=== PATIENT | male | born 1980 | race Caucasian/White ===

== ENCOUNTER 2018-08-23 06:46 | Emergency (ER) | payer BC ==
--- NOTE | 2018-08-23 07:36 | EDM.PDOC ---
ED HPI GENERAL MEDICAL PROBLEM - General Chief Complaint: ENT Problem Stated Complaint: JAW PAIN Time Seen by Provider: 08/23/18 07:14 Source of Information: Reports: Patient History Limitations: Reports: No Limitations - History of Present Illness INITIAL COMMENTS - FREE TEXT/NARRATIVE: The patient presents with left jaw pain. This started a few days ago. The pain radiates to his neck and left ear. Opening his mouth makes the pain worse. He does have bad tooth in the left lower jaw. Onset: Gradual Duration: Day(s): Location: Reports: Face (Left jaw) Quality: Reports: Sharp Severity: Moderate Improves with: Reports: None Worsens with: Reports: None Associated Symptoms: Reports: No Other Symptoms - Related Data Allergies Allergy/AdvReac Type Severity Reaction Status Date / Time No Known Allergies Allergy Verified 08/23/18 07:20 Home Meds: Home Meds Hydrocodone/Acetaminophen [Hydrocodon-Acetaminophen 5-325] 1 - 2 each PO Q6HR PRN #20 tablet 08/23/18 [Rx] LORazepam 1 mg PO BEDTIME 08/23/18 [History] Penicillin V Potassium 500 mg PO Q6HR #40 tab 08/23/18 [Rx] Past Medical History HEENT History: Reports: Impaired Vision Psychiatric History: Reports: Addiction, Anxiety, Bipolar, Depression, Suicidal Ideation Social & Family History - Tobacco Use Smoking Status *Q: Current Every Day Smoker Years of Tobacco use: 20 Packs/Tins Daily: 2 - Caffeine Use Caffeine Use: Reports: Coffee - Recreational Drug Use Recreational Drug Use: No ED ROS ENT - Review of Systems Review Of Systems: See Below Constitutional: Reports: No Symptoms HEENT: Reports: Other (Left lower jaw pain) Respiratory: Reports: No Symptoms Cardiovascular: Reports: No Symptoms Endocrine: Reports: No Symptoms GI/Abdominal: Reports: No Symptoms : Reports: No Symptoms ED EXAM, ENT - Physical Exam Exam: See Below Exam Limited By: No Limitations General Appearance: Alert, No Apparent Distress Ears: Normal External Exam, Normal Canal Nose: Normal Inspection Mouth/Throat: Other (Pain upon palpation to the left lower jaw with some erythema and mild edema) Head: Atraumatic, Normocephalic Neck: Normal Inspection, Supple, Non-Tender Course - Vital Signs Last Recorded V/S: Last Vital Signs Temp 98.2 F 08/23/18 07:15 Pulse 106 H 08/23/18 07:15 Resp 16 08/23/18 07:15 BP 157/102 H 08/23/18 07:15 Pulse Ox 97 08/23/18 07:15 Departure - Departure Time of Disposition: 07:35 Disposition: Home, Self-Care 01 Condition: Good Clinical Impression: Dental abscess, Pain, dental - Discharge Information *PRESCRIPTION DRUG MONITORING PROGRAM REVIEWED*: No *COPY OF PRESCRIPTION DRUG MONITORING REPORT IN PATIENT CARLO: No Prescriptions: Hydrocodone/Acetaminophen [Hydrocodon-Acetaminophen 5-325] 1 - 2 each PO Q6HR PRN #20 tablet PRN Reason: Pain Penicillin V Potassium 500 mg PO Q6HR #40 tab Referrals: Jamil Barrett, PAWilfredo [Primary Care Provider] - Additional Instructions: Take the penicillin 4 times per day for 10 days. Take the hydrocodone as needed for pain. Follow up with your dentist in about a week. Please return if you are worse.
== END 2018-08-23 07:52 | disposition home or self-care (01) ==
LOC: JD.ED 06:46
DX: K04.7 Periapical abscess without sinus (principal); F17.210 Nicotine dependence, cigarettes, uncomplicated
CPT/HCPCS: 99283

== ENCOUNTER 2018-08-26 20:55 | Emergency (ER) | payer BC ==
--- NOTE | 2018-08-26 21:52 | EDM.PDOC ---
ED HPI GENERAL MEDICAL PROBLEM - General Chief Complaint: ENT Problem Stated Complaint: TOOTH PAIN Time Seen by Provider: 08/26/18 20:59 Source of Information: Reports: Patient, RN Notes Reviewed History Limitations: Reports: No Limitations - History of Present Illness INITIAL COMMENTS - FREE TEXT/NARRATIVE: Patient is a 38 year old male who presents to the ED for the evaluation of dental pain. He had been previously evaluated by Dr. Johnson on 08/23/18 for dental pain and was given a script for penicillin and norco tablets. The patient stated that he went to the walk in clinic today where they gave him a shot of toradol and this provided good pain relief. He went home and took a nap and awoke with worsened pain. He did try some orajel and this did not provided much relief. He did also take 2 norco tablets directly before coming to ED and at the time of initial evaluation, he states that his pain has been relieved. He notes that the pain was at a 10/10 initially. The walk-in clinic also changed his antibiotics to cephalexin. He is aware that he will need to follow up with a dentist. lower left posterior jaw Pain Score (Numeric/FACES): 10 - Related Data Allergies Allergy/AdvReac Type Severity Reaction Status Date / Time No Known Allergies Allergy Verified 08/26/18 21:49 Home Meds: Home Meds Hydrocodone/Acetaminophen [Hydrocodon-Acetaminophen 5-325] 1 - 2 each PO Q6HR PRN #20 tablet 08/23/18 [Rx] LORazepam 1 mg PO BEDTIME 08/23/18 [History] Clindamycin HCl 450 mg PO TID 08/26/18 [History] Past Medical History HEENT History: Reports: Impaired Vision Other Respiratory History: smoker Psychiatric History: Reports: Addiction, Anxiety, Bipolar, Depression, Suicidal Ideation Social & Family History - Tobacco Use Smoking Status *Q: Current Every Day Smoker Years of Tobacco use: 10 Packs/Tins Daily: 1.5 - Caffeine Use Caffeine Use: Reports: Coffee - Recreational Drug Use Recreational Drug Use: No ED ROS ENT - Review of Systems Review Of Systems: See Below Constitutional: Denies: Fever, Chills HEENT: Reports: Dental Pain. Denies: Throat Pain, Throat Swelling Respiratory: Reports: No Symptoms Cardiovascular: Reports: No Symptoms Endocrine: Reports: No Symptoms GI/Abdominal: Reports: No Symptoms : Reports: No Symptoms Musculoskeletal: Reports: No Symptoms Skin: Reports: No Symptoms Neurological: Reports: No Symptoms Psychiatric: Reports: No Symptoms Hematologic/Lymphatic: Reports: No Symptoms Immunologic: Reports: No Symptoms ED EXAM, ENT - Physical Exam Exam: See Below Exam Limited By: No Limitations General Appearance: Alert, WD/WN, No Apparent Distress Eye Exam: Bilateral Eye: EOMI, Normal Inspection, PERRL Ears: Normal External Exam Nose: Normal Inspection Mouth/Throat: Normal Inspection, Normal Lips, Normal Oropharynx, Dental Pain ( dentition in fair repair, multiple fillings noted. Pt is having pain to Left, lower posterior jaw.), Dental Tenderness. No: Dental Trauma Head: Atraumatic, Normocephalic Neck: Normal Inspection, Supple, Non-Tender Respiratory/Chest: No Respiratory Distress, Lungs Clear, Normal Breath Sounds, No Accessory Muscle Use, Chest Non-Tender Cardiovascular: Normal Peripheral Pulses, Regular Rate, Rhythm, No Murmur Neurological: Alert, Oriented, Normal Cognition, No Motor/Sensory Deficits Psychiatric: Normal Affect, Normal Mood Skin: Warm, Dry, Intact, Normal Color, No Rash Course - Vital Signs Last Recorded V/S: Last Vital Signs Temp 98.2 F 08/26/18 21:01 Pulse 103 H 08/26/18 21:01 Resp 18 08/26/18 21:01 BP 139/93 H 08/26/18 21:01 Pulse Ox 96 08/26/18 21:01 - Re-Assessments/Exams Free Text/Narrative Re-Assessment/Exam: 08/26/18 22:00 Pt presents to the ED for the evaluation of dental pain. Upon initial evaluation , his pain has subsided due to him taking the norco before ED visit. Pt was educated that naproxen can provide good relief to dental pain and was advised to take his antibiotics as prescribed, and to reserve the norco for times that the pain is not relieved by the naproxen alone. He was urged again that he will need seek dental care after antibiotics, the patient is aware of this. Departure - Departure Time of Disposition: 21:49 Disposition: Home, Self-Care 01 Condition: Fair Clinical Impression: Pain, dental - Discharge Information *PRESCRIPTION DRUG MONITORING PROGRAM REVIEWED*: No *COPY OF PRESCRIPTION DRUG MONITORING REPORT IN PATIENT CARLO: No Referrals: Arnold,Shad W, PA-C [Primary Care Provider] - Forms: ED Department Discharge Additional Instructions: You have been evaluated in the ED for your dental pain. Please take the [place] tablets previously prescribed only if pain is not relieved by regular NSAIDs (aleve (naproxen)) Recommend Aleve (naproxen) 2 tabs twice daily for pain relief. Please take the antibiotics prescribed until they are gone. Please follow up with dentist for definitive management of affected tooth. Please return to ED if your symptoms change or worsen.
== END 2018-08-26 21:57 | disposition home or self-care (01) ==
LOC: JD.ED 20:55
DX: K08.89 Other specified disorders of teeth and supporting structures (principal); F17.210 Nicotine dependence, cigarettes, uncomplicated
CPT/HCPCS: 99282